=== PATIENT | male | born 1945 | race Caucasian/White ===

== ENCOUNTER 2017-12-04 21:57 | Inpatient (IN) ==
[2017-12-04] MEDS ORDERED: Aspirin 81 MG TAB.CHEW PO ONE (22:08)
[2017-12-04 22:20] LABS: Basophils % 0.2 %; Hematocrit 51.6 % (37.5-50.1); Hemoglobin 16.7 g/dL (12.9-16.9); Immature Granulocytes % 0.4 % (0-4); Lymphocytes # 0.3 K/mcL (0.6-4.6); Lymphocytes % 2.5 %; Mean Corpuscular HGB Conc 32.4 g/dL (31.6-35.5); Mean Corpuscular Hemoglobin 28.3 pg (28.0-33.3); Mean Corpuscular Volume 87.5 fL (83.0-100.0); Mean Platelet Volume 12.5 fL (9.4-12.4); Monocytes # 0.8 K/mcL (0.0-1.3); Monocytes % 6.6 %; Neutrophils # 11.4 K/mcL (1.6-8.9); Platelet Count 176 K/mcL (140-400); Red Cell Distribution Width 14.1 % (11.5-14.5); Segmented Neutrophils % 90.3 %
[2017-12-04 22:25] LABS: INR 1.3
[2017-12-04 22:28] LABS: Activated Partial Thrombo Time 27.2 Seconds (26.0-36.0)
[2017-12-04 22:45] LABS: BUN/Creatinine Ratio 26 (6-26); Blood Urea Nitrogen 36 mg/dL (8-23); Calcium 9.6 mg/dL (8.6-10.3); Carbon Dioxide 26 mEq/L (23-29); Chloride 97 mEq/L (98-107); Glucose 362 mg/dL (70-105); Osmolality,Calculated 297 (280-300); Potassium 4.1 mEq/L (3.5-5.1); Sodium 132 mEq/L (136-145); eGFR For Non-African Americans 50 (> 60)
[2017-12-04] MEDS ORDERED: Ipratropium/Albuterol Neb 3 ML IH ONE (22:48)
[2017-12-04] MEDS ORDERED: Piperacillin/Tazobactam 3.375 GM in 0.9 % Sodium Chloride Mini Bag 100 ML IVPB ONE (22:48)
[2017-12-04 22:57] LABS: Troponin I 0.07 ng/mL (< 0.04)
--- NOTE | 2017-12-04 23:05 | Emergency Department Note ---
Disposition Clinical Impression: Congestive heart failure Qualifiers: Heart failure type: combined systolic and diastolic Heart failure chronicity: acute on chronic Qualified Code(s): I50.43 - Acute on chronic combined systolic (congestive) and diastolic (congestive) heart failure Acute and chronic respiratory failure Qualifiers: Respiratory failure complication: unspecified whether with hypoxia or hypercapnia Qualified Code(s): J96.20 - Acute and chronic respiratory failure, unspecified whether with hypoxia or hypercapnia Disposition: Admitted As Inpatient Condition: Fair Referrals: Alexis Sung DO [Primary Care Provider] - Forms: ED Satisfaction Letter Time of Disposition: 00:51 General Adult HPI - General Chief complaint: ED Shortness of Breath/Dyspnea Stated complaint: Im having a heart attack per [place] Time Seen by Provider: 12/04/17 22:08 Source: patient Limitations: no limitations Nursing Notes Reviewed: Yes Vital Signs Reviewed: Yes - History of Present Illness HPI Narrative: 72yo male presents from home for evaluation of a 5 day history of progressive dyspnea with cough. Patient was seen and [facility] at [facility] yesterday: he was offered ICU admission for pulmonary edema and dyspnea. He left [place]. Today, he returned to [facility] where he was offered transfer to [place]. Patient refused. He was offered admission to [place]. Patient refused and left [place]. When he returned home, his family, in frustration, encouraged him to present to [place]. PMH: Atrial fibrillation not anticoagulated. CAD with ACS status post stent . No CABG. Patient has COPD with no home oxygen. He was told by his chief executive or managing director that he should have a partial lobectomy however, patient refused. ROS: Positive: Productive cough, increased work of breathing, shortness of breath at rest, diaphoresis. Negative: Chest pain, fevers, chills, nausea, vomiting, abdominal pain, changes in bowel or bladder habits Pain Scale: 0 - Related Data Allergies Allergy/AdvReac Type Severity Reaction Status Date / Time No Known Allergies Allergy Verified 12/04/17 22:09 All systems ED: reviewed and negative except as stated. Review of Systems: As Per HPI Past Medical History - Past Medical History Medical history: Reports: atrial fibrillation, CHF, COPD, diabetes, myocardial infarction - Social History Smoking Status: Former smoker Alcohol use: Reports: none Drug use: Reports: none Physical Exam Vital Signs Reviewed General: Patient is alert, oriented, and in acute respiratory distress-he is to give neck, tachycardic, diaphoretic accessory muscle usage, requires no oxygen, has conversational dyspnea Head: atraumatic, normocephalic Eye: normal appearance, no scleral icterus, no conjunctival injection ENT: mucous membranes moist, normal external ear exam Neck: normal inspection, trachea midline, full ROM Chest: normal inspection, symmetric chest rise Respiratory: Poor respiratory effort. Prolonged respiratory phase. Bilateral breath sounds are diffusely diminished with poor injury, course global wheeze. No bibasilar crackles or rhonchi. Cardiovascular: Tachycardic rate, regular rhythm. No clicks, rubs, gallops, or murmors. Normal heart sounds. Abdomen: Bowel sounds present normoactive x-4 quadrants. Abdomen is soft, nondistended, and nontender. No guarding or rebound. Musculoskeletal: Spontaneously moving all extremities. Skin: warm, moist, intact. Neuro: Alert and oriented x4. Sensation light touch intact. Psych: Patient's affect is appropriate for situation. - General Limitations: no limitations General appearance: alert, in no apparent distress Course Course Narrative: Discussed the patient with Dr. Alves who saw the patient today at [facility]: 19:35 laboratory work: Troponin 0.205. BNP 16, 200 Lactic acid 2.6 Creatinine 1.24 Medications given today: DuoNeb 2, Cymetra, Lasix 20 mg Echocardiogram at [place] July 2016: LVEF 30%. Mild LV dilation. LV hypokinesis. Diastolic dysfunction secondary to restrictive left ventricular filling pattern. Pulmonary hypertension at 65-70. After discussion with the patient, he is agreeable to admission to this facility. He simply stated that he does not like [place] and refused admission. Patient's troponin 0.7 per phone call from lab.. Clinically suspect demand ischemia from his florid pulmonary edema and combined systolic diastolic congestive heart failure. I discussed the patient briefly with Dr. Wong who advises heparinization with no other concerns at this time. Note: Patient's troponin 0.07 as evidenced on the final results and laboratory Tab in the electronic health record. Heparin has only been started based on the 0.7 troponin the phone call from lab. EKG dated 12/04/2017 at 22:08 interpreted as ventricular paced with atrial sensing. QTC 546. Nonspecific ST-T changes. No previous EKG for comparison. Chest x-ray shows pulmonary edema likely secondary to CHF. Chest X-Ray 12/04/17 22:08 IMPRESSION: Findings likely represent congestive heart failure. D/ / Jerry Palma MD / Jerry Palma MD Interpreting Provider: Jerry Palma MD Vital Signs Temperature 98.4 F 12/04/17 22:03 Pulse Rate 115 12/04/17 22:03 Respiratory Rate 20 12/04/17 22:03 Blood Pressure 149/91 12/04/17 22:03 O2 Sat by Pulse Oximetry 94 12/04/17 22:03 Temperature 98.4 F 12/04/17 22:03 Pulse Rate 102 12/04/17 23:56 Respiratory Rate 28 12/04/17 23:56 Blood Pressure 147/89 12/04/17 23:56 O2 Sat by Pulse Oximetry 97 12/04/17 23:56 Oxygen Delivery Oxygen Delivery Bipap Medical Decision Making - Lab Data Result diagrams: 12/04/17 23:16 12/04/17 22:11 Lab Results 12/04/17 12/04/17 12/04/17 Range/Units 22:11 22:11 22:11 WBC 12.6 H (4.3-11.1) K/mcL RBC 5.90 H (4.19-5.50) M/mcL Hgb 16.7 (12.9-16.9) g/dL Hct 51.6 H (37.5-50.1) % MCV 87.5 (83.0-100.0) fL MCH 28.3 (28.0-33.3) pg MCHC 32.4 (31.6-35.5) g/dL RDW 14.1 (11.5-14.5) % Plt Count 176 (140-400) K/mcL MPV 12.5 H (9.4-12.4) fL Immature Gran % 0.4 (0-4) % Seg Neutrophils % 90.3 % Lymphocytes % 2.5 % Monocytes % 6.6 % Eosinophils % 0.0 % Basophils % 0.2 % Neutrophils # 11.4 H (1.6-8.9) K/mcL Lymphocytes # 0.3 L (0.6-4.6) K/mcL Monocytes # 0.8 (0.0-1.3) K/mcL Eosinophils # 0.0 (0.0-0.6) K/mcL Basophils # 0.0 (0.0-0.2) K/mcL PT 15.0 H (9.4-12.1) Seconds INR 1.3 APTT 27.2 (26.0-36.0) Seconds Heparin Anti-Xa, Unfract (0.30-0.70) IU/mL Sodium 132 L (136-145) mEq/L Potassium 4.1 (3.5-5.1) mEq/L Chloride 97 L (98-107) mEq/L Carbon Dioxide 26 (23-29) mEq/L BUN 36 H (8-23) mg/dL Creatinine 1.40 H (0.70-1.30) mg/dL Est GFR ( Amer) > 60 (> 60) Est GFR (Non-Af Amer) 50 L (> 60) BUN/Creatinine Ratio 26 (6-26) Glucose 362 H (70-105) mg/dL Calculated Osmolality 297 (280-300) Calcium 9.6 (8.6-10.3) mg/dL Troponin I 0.07 H* (< 0.04) ng/mL 12/04/17 12/04/17 Range/Units 23:16 23:16 WBC 12.1 H (4.3-11.1) K/mcL RBC 5.67 H (4.19-5.50) M/mcL Hgb 16.3 (12.9-16.9) g/dL Hct 49.4 (37.5-50.1) % MCV 87.1 (83.0-100.0) fL MCH 28.7 (28.0-33.3) pg MCHC 33.0 (31.6-35.5) g/dL RDW 14.0 (11.5-14.5) % Plt Count 154 (140-400) K/mcL MPV 12.6 H (9.4-12.4) fL Immature Gran % (0-4) % Seg Neutrophils % % Lymphocytes % % Monocytes % % Eosinophils % % Basophils % % Neutrophils # (1.6-8.9) K/mcL Lymphocytes # (0.6-4.6) K/mcL Monocytes # (0.0-1.3) K/mcL Eosinophils # (0.0-0.6) K/mcL Basophils # (0.0-0.2) K/mcL PT (9.4-12.1) Seconds INR APTT (26.0-36.0) Seconds Heparin Anti-Xa, Unfract 0.04 L (0.30-0.70) IU/mL Sodium (136-145) mEq/L Potassium (3.5-5.1) mEq/L Chloride (98-107) mEq/L Carbon Dioxide (23-29) mEq/L BUN (8-23) mg/dL Creatinine (0.70-1.30) mg/dL Est GFR ( Amer) (> 60) Est GFR (Non-Af Amer) (> 60) BUN/Creatinine Ratio (6-26) Glucose (70-105) mg/dL Calculated Osmolality (280-300) Calcium (8.6-10.3) mg/dL Troponin I (< 0.04) ng/mL
[2017-12-04] MEDS ORDERED: *HR* Heparin 5,000 UNIT/ML VIAL IVP ONE (23:07)
[2017-12-04] MEDS ORDERED: *HR* Heparin 5,000 UNIT/ML VIAL IVP PRN ×2 (23:07)
[2017-12-04] MEDS ORDERED: Heparin 25,000 UNIT/500 ML D5W 25,000 UNIT/500 ML BAG IVC SCH (23:15)
[2017-12-04 23:33] LABS: Hematocrit 49.4 % (37.5-50.1); Hemoglobin 16.3 g/dL (12.9-16.9); Mean Corpuscular Hemoglobin 28.7 pg (28.0-33.3); Mean Corpuscular Volume 87.1 fL (83.0-100.0); Mean Platelet Volume 12.6 fL (9.4-12.4); Platelet Count 154 K/mcL (140-400); Red Blood Count 5.67 M/mcL (4.19-5.50)
--- NOTE | 2017-12-04 23:53 | Emergency Department Note ---
Disposition Clinical Impression: Congestive heart failure Qualifiers: Heart failure type: combined systolic and diastolic Heart failure chronicity: acute on chronic Qualified Code(s): I50.43 - Acute on chronic combined systolic (congestive) and diastolic (congestive) heart failure Acute and chronic respiratory failure Qualifiers: Respiratory failure complication: hypoxia Qualified Code(s): J96.21 - Acute and chronic respiratory failure with hypoxia Disposition: Admitted As Inpatient Condition: Fair General Adult HPI - General Chief complaint: ED Shortness of Breath/Dyspnea Stated complaint: Im having a heart attack per [place] Time Seen by Provider: 12/04/17 22:08 Source: patient Limitations: no limitations - History of Present Illness Pain Scale: 0 - Related Data Allergies Allergy/AdvReac Type Severity Reaction Status Date / Time No Known Allergies Allergy Verified 12/04/17 22:09 Past Medical History - Past Medical History Medical history: Reports: atrial fibrillation, CHF, COPD, diabetes, myocardial infarction - Social History Smoking Status: Former smoker Alcohol use: Reports: none Drug use: Reports: none Physical Exam - General Limitations: no limitations General appearance: alert, in no apparent distress Course Vital Signs Temperature 98.4 F 12/04/17 22:03 Pulse Rate 115 12/04/17 22:03 Respiratory Rate 20 12/04/17 22:03 Blood Pressure 149/91 12/04/17 22:03 O2 Sat by Pulse Oximetry 94 12/04/17 22:03 Temperature 97.5 F L 12/05/17 04:32 Pulse Rate 128 12/05/17 04:32 Respiratory Rate 16 12/05/17 04:32 Blood Pressure 116/86 12/05/17 04:32 O2 Sat by Pulse Oximetry 94 12/05/17 04:32 Oxygen Delivery Oxygen Delivery Oximizer Medical Decision Making - Medical Records Medical records reviewed: Yes I reviewed the patient's medical records. - Lab Data Lab results reviewed: Yes I reviewed the patient's lab results. Result diagrams: 12/05/17 04:56 12/05/17 04:56 Lab Results 12/04/17 12/04/17 12/04/17 Range/Units 22:11 22:11 22:11 WBC 12.6 H (4.3-11.1) K/mcL RBC 5.90 H (4.19-5.50) M/mcL Hgb 16.7 (12.9-16.9) g/dL Hct 51.6 H (37.5-50.1) % MCV 87.5 (83.0-100.0) fL MCH 28.3 (28.0-33.3) pg MCHC 32.4 (31.6-35.5) g/dL RDW 14.1 (11.5-14.5) % Plt Count 176 (140-400) K/mcL MPV 12.5 H (9.4-12.4) fL Immature Gran % 0.4 (0-4) % Seg Neutrophils % 90.3 % Lymphocytes % 2.5 % Monocytes % 6.6 % Eosinophils % 0.0 % Basophils % 0.2 % Neutrophils # 11.4 H (1.6-8.9) K/mcL Lymphocytes # 0.3 L (0.6-4.6) K/mcL Monocytes # 0.8 (0.0-1.3) K/mcL Eosinophils # 0.0 (0.0-0.6) K/mcL Basophils # 0.0 (0.0-0.2) K/mcL PT 15.0 H (9.4-12.1) Seconds INR 1.3 APTT 27.2 (26.0-36.0) Seconds Heparin Anti-Xa, Unfract (0.30-0.70) IU/mL Sodium 132 L (136-145) mEq/L Potassium 4.1 (3.5-5.1) mEq/L Chloride 97 L (98-107) mEq/L Carbon Dioxide 26 (23-29) mEq/L BUN 36 H (8-23) mg/dL Creatinine 1.40 H (0.70-1.30) mg/dL Est GFR ( Amer) > 60 (> 60) Est GFR (Non-Af Amer) 50 L (> 60) BUN/Creatinine Ratio 26 (6-26) Glucose 362 H (70-105) mg/dL Calculated Osmolality 297 (280-300) Calcium 9.6 (8.6-10.3) mg/dL Troponin I 0.07 H* (< 0.04) ng/mL B-Natriuretic Peptide (Less than 100) pg/mL 12/04/17 12/04/17 12/04/17 Range/Units 23:16 23:16 23:16 WBC 12.1 H (4.3-11.1) K/mcL RBC 5.67 H (4.19-5.50) M/mcL Hgb 16.3 (12.9-16.9) g/dL Hct 49.4 (37.5-50.1) % MCV 87.1 (83.0-100.0) fL MCH 28.7 (28.0-33.3) pg MCHC 33.0 (31.6-35.5) g/dL RDW 14.0 (11.5-14.5) % Plt Count 154 (140-400) K/mcL MPV 12.6 H (9.4-12.4) fL Immature Gran % (0-4) % Seg Neutrophils % % Lymphocytes % % Monocytes % % Eosinophils % % Basophils % % Neutrophils # (1.6-8.9) K/mcL Lymphocytes # (0.6-4.6) K/mcL Monocytes # (0.0-1.3) K/mcL Eosinophils # (0.0-0.6) K/mcL Basophils # (0.0-0.2) K/mcL PT (9.4-12.1) Seconds INR APTT (26.0-36.0) Seconds Heparin Anti-Xa, Unfract 0.04 L (0.30-0.70) IU/mL Sodium (136-145) mEq/L Potassium (3.5-5.1) mEq/L Chloride (98-107) mEq/L Carbon Dioxide (23-29) mEq/L BUN (8-23) mg/dL Creatinine (0.70-1.30) mg/dL Est GFR ( Amer) (> 60) Est GFR (Non-Af Amer) (> 60) BUN/Creatinine Ratio (6-26) Glucose (70-105) mg/dL Calculated Osmolality (280-300) Calcium (8.6-10.3) mg/dL Troponin I (< 0.04) ng/mL B-Natriuretic Peptide 1167 H (Less than 100) pg/mL - Radiology Data Radiology results reviewed: Yes I reviewed the patient's radiology results. Chest X-Ray 12/04/17 22:08 IMPRESSION: Findings likely represent congestive heart failure. D/ / Jerry Palma MD / Jerry Palma MD Interpreting Provider: Jerry Palma MD Critical Care Time Critical Care Time: Yes Total Critical Care Time: 45 Attestation: Critical care performed: Time is exclusive of separately billable procedures. Time includes: direct patient care, patient reassessment, coordination of patient care, interpretation of data (laboratory data, radiology data, and respiratory data), review of patient's medical records, medical consultation and documentation of patient care. Procedures included in critical care time: Procedures excluded from critical care time: Attestation Statement - Attestation Attestation: I, Gregory Amato MD, personally evaluated this patient and discussed their management with the resident physician. I reviewed the resident's note and agree with the documented findings, medical decision making, and plan of care. 72-year-old male with history of CHF and COPD as well as coronary artery disease presents to the emergency department with a complaint of cough and congestion and increased shortness of breath for about 5 days prior to arrival. He was seen at [facility] yesterday and diagnosed with CHF. They wanted to admit him but he refused and left AMA. He returned there this evening because his symptoms were worse and this evening they checked a troponin and it was 0.2. They wanted to transfer him to [place] and he again refused to be admitted there or go to [place] and left AMA and then presented here. He denies any chest pain. He just complains of shortness of breath. On examination patient is a well-developed well-nourished elderly male in moderate respiratory distress. He is alert and oriented 3. There is no cyanosis but patient is moderately diaphoretic. Breath sounds are decreased bilaterally with some scattered bilateral expiratory wheezes and bibasilar rales. Heart is tachycardic and irregularly irregular. Abdomen is soft and nontender with normal bowel sounds. Patient has a pacemaker therefore no diagnostic information available based on his EKG. Chest x-ray shows CHF. Labs reviewed. Troponin now is 0.07. Initially there was a miscommunication and when the lab called us the critical troponin her understanding was that it was 0.7. Dr. Paredes discussed this with the cement breaker, Dr. Wong. He did recommend going ahead and treating the patient with heparin which was ordered. Labs reviewed. Patient agreeable to admission. We did try him on BiPAP which he tolerated for a while but then took it off and stated he could not tolerate it anymore. He did clinically improve with treatment. He also received Lasix. The hospitalist , Dr. Dowd, was consulted and accepted admission of the patient.
[2017-12-05] MEDS ORDERED: Furosemide 40 MG in 0.9 % Sodium Chloride 50 ML IVPB ONE (00:43)
[2017-12-05] MEDS ORDERED: D5% in Water 1,000 ML IVC PRN (01:25)
[2017-12-05] MEDS ORDERED: *HR* Dextrose 50 % in Water (Syg) 50 ML SYRINGE IVP PRN (01:25)
[2017-12-05] MEDS ORDERED: Dextrose Gel 15 GM/37.5 ML TUBE PO PRN ×2 (01:25)
--- NOTE | 2017-12-05 01:38 | Internal Med History&Physical ---
<Richard Rosales - Last Filed: 12/05/17 01:28> Date of Encounter: 12/05/17 Time of Encounter: 01:29 Internal Medicine - H&P: HPI Chief complaint: sob Admitted From: Home Plans for Post Hospital Care: Home History of present illness: Mr. Baldwin is a 72 year old male hx of CAD s/p PCI x 12 stents, CHF, DM, COPD presents with cc of sob x 2 days with yellow sputum production, subjective fever , cough, diaphoresis exertional dyspnea, worsening LE edema. He denies chest pain, palpitations, syncope, abdominal pain, N/V. Patient reports he was evaluated at [facility] on 12/03 and was offered ICU admission but refused but he returned to [facility] on evening of 12/04 where he was told he may be having a heart attack and offered transfer to [facility] but left [facility] and then family convinced him to come to [place]. He reports he has been around family members who were just diagnosed with pneumonia. [facility] lab work as per ER note showed troponin of 0.205, BNP 16,200, Lactic acid 2.6, Creatinine 1.24. Echocardiogram at [facility] July 2016: LVEF 30%. Mild LV dilation. LV hypokinesis. Diastolic dysfunction secondary to restrictive left ventricular filling pattern. Pulmonary hypertension at 65-70. ED reports lab calld and said troponin was 0.7. Cardiology was called and patient was started on heparin drip. However it was documented in EMR as 0.07. Heparin was d/c. Patient was placed on Bipap and given IV lasix in ED. Past Med Surg Social Fam HX - Past Medical History Medical history: atrial fibrillation, CHF, COPD, diabetes, myocardial infarction - Past Surgical History Surgical History: pacemaker/AICD, other (PCI) - Social History Smoking Status: Former smoker Alcohol use: none Drug use: none - Family History Brother Living Status: Hx Family Cardiac Disorders: Yes ([place]) Internal Medicine - H&P: Meds 3 Allergy/AdvReac Type Severity Reaction Status Date / Time No Known Allergies Allergy Verified 12/04/17 22:09 All Systems PM: A 10-system review of systems was performed and is negative for pertinent findings except as documented above in the HPI. Review of systems: Constitutional: Reports fevers, denies chills. Reports diaphoresis HEENT: Denies headache, trauma, blurry vision, eye discharge, ear pain, ear discharge neck pain, sore throat, reports rhinorrhea Heart: Denies chest pain palpitations, reports LE edema Lungs: Reports shortness of breath cough Abdomen: Denies abdominal pain nausea vomiting diarrhea MSK: Denies back pain, falls, joint pain Kidney: Denies dysuria, hematuria Skin: Denies rash, ulcers Neuro: Denies numbness and tingling Psych: denies axniety, depression - Constitutional Vitals: Temp Pulse Resp BP Pulse Ox 98.4 F 102 28 147/89 97 12/04/17 22:03 12/04/17 23:56 12/04/17 23:56 12/04/17 23:56 12/04/17 23:56 Exam: General: pleasant, without distress HEENT: Head atraumatic, normocephalic, EOMI, PERRL, absent ear discharge or trauma, Moist Mucous Membranes, uvula midline Neck: nontender to palpation, absent lymphadenopathy, Cardiovascualr: Irregularly irregular, tachycardic, without murmur absent gallops or rubs, 1+ nonpitting pedal edema, radial pulses 2 out of 4 Lungs: Anterior upper lobes bilaterally inspiratory wheezing, bilateral upper and lower lobes posteriorly with rhonchi, poor inspiratory effort. Respiratory distress Abdomen: Soft nontender, nondistended positive bowel sounds, absent hepatomegaly Skin: Patient has very dry scaly skin in the lower extremities. Onychomycosis bilateral toenails MSK: absent clubbing, cyanosis, joints without swelling Neuro: Cranial nerves II through XII intact, UE and LE sensation equal bilaterally, UE and LEstrength 5/5, alert oriented 3, Psych: Poor judgment, anxious Internal Med - H&P Results - Labs CBC & Chem 7: 12/04/17 23:16 12/04/17 22:11 Labs: Short CBC 12/04/17 12/04/17 Range/Units 22:11 23:16 WBC 12.6 H 12.1 H (4.3-11.1) K/mcL Hgb 16.7 16.3 (12.9-16.9) g/dL Hct 51.6 H 49.4 (37.5-50.1) % Plt Count 176 154 (140-400) K/mcL Neutrophils # 11.4 H (1.6-8.9) K/mcL BMP 12/04/17 22:11 Sodium 132 L Potassium 4.1 Chloride 97 L Carbon Dioxide 26 BUN 36 H Creatinine 1.40 H Glucose 362 H Calcium 9.6 Cardiac Enzymes 12/04/17 Range/Units 22:11 Troponin I 0.07 H* (< 0.04) ng/mL - Impressions ITS Impressions Chest X-Ray 12/04/17 22:08 IMPRESSION: Findings likely represent congestive heart failure. D/ / Jerry Palma MD / Jerry Palma MD Interpreting Provider: Jerry Palma MD - Assessment and plan (1) Acute and chronic respiratory failure Current Visit: Yes Status: Acute Assessment and plan: Acute on chronic respiratory failure with hypoxia Patient is not on oxygen at home is requiring BiPAP support and oxygen supplementation Chest x-ray shows evidence of pulmonary edema. Secondary to CHF exacerbation, COPD exacerbation, currently acquired pneumonia Patient will be on BiPAP and oxygen supplementation, IV steroids and IV antibiotics Qualifiers: Respiratory failure complication: hypoxia Qualified Code(s): J96.21 - Acute and chronic respiratory failure with hypoxia (2) Congestive heart failure Current Visit: Yes Status: Acute Assessment and plan: Hx of combined systolic and diastolic HF acute on chronic BNP 1167 Echocardiogram at [facility] July 2016: LVEF 30%. Mild LV dilation. LV hypokinesis. Diastolic dysfunction secondary to restrictive left ventricular filling pattern. Pulmonary hypertension at 65-70. repeat echocardiogram. lisinopril 5mg daily, Lasix 40mg IV BID Qualifiers: Heart failure type: combined systolic and diastolic Heart failure chronicity: acute on chronic Qualified Code(s): I50.43 - Acute on chronic combined systolic (congestive) and diastolic (congestive) heart failure (3) COPD exacerbation Current Visit: Yes Status: Acute Assessment and plan: in conjunction with CAP and CHF exacerbation patient was started on prednisone, duonebs and antibiotics (4) Community acquired pneumonia Current Visit: Yes Status: Acute Assessment and plan: patient presents with worsening sob, cough, sputum production bacterial reports his family members developed pneumonia in the past week wbc 12, afebrile blood cultures sent plan: start levaquin (total 5 day course) Qualifiers: Laterality: unspecified laterality Qualified Code(s): J18.9 - Pneumonia, unspecified organism (5) Demand ischemia Current Visit: Yes Status: Acute Assessment and plan: Patient at [facility] had troponin elevation of 0.2 and on admission here troponin was 0.07 Likely this is secondary to demand ischemia from CHF exacerbation Currently we will trend troponins 1 (6) Diabetes mellitus Current Visit: Yes Status: Acute Assessment and plan: Patient has history of insulin-dependent type 2 diabetes mellitus Reports he was on insulin but recently his insurance change and he could not afford this Patient has not used insulin in the last 2 months We will obtain an A1c Cardiac ADA diet Low-dose sliding scale ACHS accuchecks Qualifiers: Diabetes mellitus type: type 2 Diabetes mellitus retirement insulin use: with retirement use Diabetes mellitus complication status: with unspecified complications Qualified Code(s): E11.8 - Type 2 diabetes mellitus with unspecified complications; Z79.4 - half-way (current) use of insulin (7) Atrial fibrillation Current Visit: Yes Status: Acute Assessment and plan: hx of atrial fibrillation unclear which medicaiton patient takes for rate control but he reports he was on eliquis but currently does is not taking it due to affordability CHADSVASC score 5. He will need to be restarted on anticoagulation. social work faculty member consult placed. metoprolol started. Qualifiers: Atrial fibrillation type: unspecified Qualified Code(s): I48.91 - Unspecified atrial fibrillation (8) Hx of coronary artery disease Current Visit: Yes Status: Acute Assessment and plan: patient reports hx of CAD s/p PCI x 12 stents ([facility]) denies chest pain aspirin, metoprolol, statin. - Time Spent With Patient Total time spent is greater than 50% in coordination of care (as documented) at patient's floor/unit and/or counseling patient: <Justo Dowd - Last Filed: 12/05/17 02:03> Date of Encounter: 12/05/17 Internal Medicine - H&P: HPI History of present illness: Mr. Baldwin is a 72 year old male All Systems PM: A 10-system review of systems was performed and is negative for pertinent findings except as documented above in the HPI. - Constitutional Vitals: Temp Pulse Resp BP Pulse Ox 98.4 F 108 24 120/92 97 09/16/18 22:03 12/05/17 01:29 12/05/17 02:00 12/05/17 02:00 12/05/17 01:29 Internal Med - H&P Results - Labs CBC & Chem 7: 12/04/17 23:16 12/04/17 22:11 - Assessment and plan (1) Congestive heart failure Current Visit: Yes Status: Acute Qualifiers: Heart failure type: combined systolic and diastolic Heart failure chronicity: acute on chronic Qualified Code(s): I50.43 - Acute on chronic combined systolic (congestive) and diastolic (congestive) heart failure (2) Acute and chronic respiratory failure Current Visit: Yes Status: Acute Qualifiers: Respiratory failure complication: hypoxia Qualified Code(s): J96.21 - Acute and chronic respiratory failure with hypoxia (3) Demand ischemia Current Visit: Yes Status: Acute (4) Diabetes mellitus Current Visit: Yes Status: Acute Qualifiers: Diabetes mellitus type: type 2 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 Diabetes mellitus complication status: with unspecified complications Qualified Code(s): E11.8 - Type 2 diabetes mellitus with unspecified complications; Z79.4 - half-way (current) use of insulin (5) Atrial fibrillation Current Visit: Yes Status: Acute Qualifiers: Atrial fibrillation type: unspecified Qualified Code(s): I48.91 - Unspecified atrial fibrillation (6) Community acquired pneumonia Current Visit: Yes Status: Acute Qualifiers: Laterality: unspecified laterality Qualified Code(s): J18.9 - Pneumonia, unspecified organism (7) COPD exacerbation Current Visit: Yes Status: Acute (8) Hx of coronary artery disease Current Visit: Yes Status: Acute - Time Spent With Patient Total time spent is greater than 50% in coordination of care (as documented) at patient's floor/unit and/or counseling patient: - Attending Attestation Chandana Baldwin is a 72 year old man with CHF and COPD who has been non- adherent to therapy and follow up, recently seen at outside hospital for CHF exacerbation, pulmonary edema and possible ACS but signed out twice as he refused admission and comes in here on insistence by family members. He was notably tachycardic on arrival with respiratory difficulty and was promptly placed on Bipap with improvement noted. Seen to have a mild troponin elevation, exquisitely high BNP and findings of vascular congestion with pleural effusion on my review of his x-ray. Physical exam remarkable for unkempt gentleman with rhonchorous breath sounds in both lung rouse and bilateral pitting edema. Will admit as acute hypoxic respiratory failure secondary to acute on chronic systolic heart failure compounded by COPD as well. Less likely pneumonia however still a possibility confounding and triggering factor. Start IV diuretics, low dose ACEI and BB. High intensity statin therapy indicated. Troponin likely secondary to myocardial strain and will stop heparin drip. Will obtain TTE in the morning and trend troponin levels in the interim. Ok to stop vancomycin/piptazo; can keep on levofloxacin 750mg daily for now for possible adjuvant pneumonia and help with the COPD signs of increasing productive cough and change in color. Continue nebulizer therapy. Will benefit from social work faculty member consult due to his poor follow up and self-care.
[2017-12-05] MEDS ORDERED: predniSONE 20 MG TABLET PO ONE (01:49)
[2017-12-05] MEDS: Ipratropium/Albuterol Neb 3 ML IH SCH ×3 (03:35→11:48)
[2017-12-05 05:11] LABS: Basophils % 0.1 %; Hematocrit 48.6 % (37.5-50.1); Hemoglobin 15.8 g/dL (12.9-16.9); Immature Granulocytes % 0.4 % (0-4); Lymphocytes # 0.3 K/mcL (0.6-4.6); Lymphocytes % 3.5 %; Mean Corpuscular HGB Conc 32.5 g/dL (31.6-35.5); Mean Corpuscular Hemoglobin 28.6 pg (28.0-33.3); Mean Corpuscular Volume 87.9 fL (83.0-100.0); Mean Platelet Volume 12.3 fL (9.4-12.4); Monocytes # 0.2 K/mcL (0.0-1.3); Monocytes % 2.2 %; Neutrophils # 7.8 K/mcL (1.6-8.9); Platelet Count 144 K/mcL (140-400); Red Blood Count 5.53 M/mcL (4.19-5.50); Red Cell Distribution Width 14.1 % (11.5-14.5); Segmented Neutrophils % 93.8 %
[2017-12-05 05:36] LABS: Chol/HDL Ratio 3.4 (0-4.9)
[2017-12-05 05:38] LABS: Alanine Aminotransferase 13 Units/L (7-52); Albumin 3.6 g/dL (3.5-5.7); Albumin/Globulin Ratio 1.3 (1.1-2.2); Alkaline Phosphatase 164 Units/L (34-104); Aspartate Amino Transferase 16 Units/L (13-39); BUN/Creatinine Ratio 28 (6-26); Bilirubin,Total 2.1 mg/dL (0.3-1.0); Blood Urea Nitrogen 37 mg/dL (8-23); Calcium 9.3 mg/dL (8.6-10.3); Carbon Dioxide 22 mEq/L (23-29); Chloride 97 mEq/L (98-107); Globulin 2.8 g/dL (2.4-3.5); Glucose 446 mg/dL (70-105); Magnesium 1.8 mg/dL (1.6-2.6); Osmolality,Calculated 304 (280-300); Phosphorous 3.5 mg/dL (2.7-4.5); Potassium 4.2 mEq/L (3.5-5.1); Sodium 133 mEq/L (136-145); Total Protein 6.4 g/dL (6.4-8.9); eGFR For Non-African Americans 53 (> 60)
[2017-12-05 05:41] LABS: Troponin I 0.07 ng/mL (< 0.04)
[2017-12-05] MEDS ORDERED: *HR* Heparin 5,000 UNIT/ML VIAL SQ SCH (06:00)
[2017-12-05 07:06] LABS: Estimated Average Glucose 246 mg/dl; Hemoglobin A1C 10.2 %
[2017-12-05] MEDS ORDERED: Insulin LISPRO 300 UNITS/3 ML VIAL SQ SCH ×4 (07:30→21:00)
[2017-12-05] MEDS ORDERED: methylPREDNISolone 125 MG/2 ML VIAL IVP SCH (08:00)
[2017-12-05] MEDS ORDERED: Levofloxacin 750 MG/150 ML 750 MG/150 ML BAG IVPB SCH (09:00)
[2017-12-05] MEDS ORDERED: predniSONE 20 MG TABLET PO SCH (09:00)
[2017-12-05] MEDS ORDERED: Furosemide 40 MG/4 ML VIAL IVP SCH ×2 (09:00)
[2017-12-05] MEDS ORDERED: Aspirin 81 MG TAB.CHEW PO SCH (09:00)
--- NOTE | 2017-12-05 10:50 | Event Note ---
Date of Encounter: 12/05/17 Time of Encounter: 09:30 H&P reviewed. 72-year-old male with history of CAD status post PCI, diabetes, COPD, combined systolic and diastolic heart failure, presented with acute on chronic hypoxic respiratory failure. Currently being managed for CAP, decompensated heart failure, and COPD exacerbation. IV Levaquin, PO Prednisone, IV lasix 40mg BID, and bronchodilators. Significant improvement in his symptoms after 1 days of treatement is suggestive of a predominant component of heart failure as the contributing factor for respiratory failure. Troponin elevation is flat and adynamic, low suspicion for primary ACS as a cause. Will repeat Echo. Outpatient ischemic workup. He was not able to afford eliquis (for afib) for the last 2 months but he has an appt with his PCP this Wed to discuss the matter. Will resume eliquis at least while inpatient.
[2017-12-05 14:01] VITALS: BP 120/66
[2017-12-05] MEDS ORDERED: Gabapentin 300 MG CAPSULE PO SCH (19:00)
[2017-12-05] MEDS ORDERED: Apixaban 5 MG TABLET PO SCH (21:00)
[2017-12-06] MEDS ORDERED: Aspirin Enteric Coated 81 MG Tablet PO SCH (09:00)
--- NOTE | 2017-12-06 17:29 | Electrocardiograph Report ---
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
== END 2017-12-05 15:21 | disposition left against medical advice (07) | DRG 291 ==
LOC: 3ANU 21:57 → EMEROOARM 21:57 → 3ANU 12-05 01:44 → SUATTDRO 12-05 01:46 → 3ANU 12-05 02:31
PROVIDERS: ADMIT Internal Medicine; ATTEND Internal Medicine